=== PATIENT | female | born 1975 | race Two or more races ===

== ENCOUNTER 2017-10-23 08:00 | Day surgery (SDC) | payer OTHER | END 2017-10-23 12:40 | disposition home or self-care (01) | LOC: AMB-ENDOS 08:00 | DX: D12.6 Benign neoplasm of colon, unspecified (principal); K64.8 Other hemorrhoids; Z12.11 Encounter for screening for malignant neoplasm of colon ==

== ENCOUNTER 2019-03-24 07:45 | Inpatient (IN) | payer OTHER ==
[~2019-03-24] VITALS: Ht 157.5 cm; Wt 68.0 kg
[2019-03-24] MEDS ORDERED: B COMPLEX # 11 EACH PO (11:31)
[2019-03-24] MEDS ORDERED: IRON 100 PLUS1 EACH PO (11:31)
[2019-03-24] MEDS ORDERED: VITAMIN C500 MG/15 PO (11:32)
[2019-03-29] MEDS ORDERED: OXYC1TAB9 PO ×2 (09:36)
[2019-03-29] MEDS ORDERED: KETO10TA2 PO ×2 (09:36)
[2019-03-30] MEDS ORDERED: TENORMIN25 MG PO (23:37)
== END 2019-03-29 12:41 | disposition home or self-care (01) | DRG 743 ==
LOC: SURG 07:45 → OB/GYN 03-26 07:43 → O/R 03-26 07:43 → SURG 03-26 07:45 → OB/GYN 03-26 14:17
PROVIDERS: ADMIT Obstetrics & Gynecology Maternal & Fetal Medicine
PROC: 0UT60ZZ Resection of Left Fallopian Tube, Open Approach (ICD-10-PCS; 2019-03-26)
PROC: 0UT90ZL Resection of Uterus, Supracervical, Open Approach (ICD-10-PCS; principal; 2019-03-26 12:15)
DX: D25.1 Intramural leiomyoma of uterus (principal); D25.2 Subserosal leiomyoma of uterus; N80.0 Endometriosis of uterus

== ENCOUNTER 2019-03-30 14:07 | Emergency (ER) | payer OTHER ==
[~2019-03-30] VITALS: Ht 157.5 cm; Wt 63.5 kg
[~2019-03-30 14:07] MED LIST: B COMPLEX # 11 EACH PO; IRON 100 PLUS1 EACH PO; KETO10TA2 PO; OXYC1TAB9 PO; VITAMIN C500 MG/15 PO
[2019-03-30] MEDS ORDERED: TENORMIN25 MG PO (23:37)
== END 2019-03-30 23:43 | disposition home or self-care (01) ==
LOC: ER 14:07
DX: I16.0 Hypertensive urgency (principal); I10 Essential (primary) hypertension; R51 Headache